=== PATIENT | female | born 1945 | race Caucasian/White ===

== ENCOUNTER → 2016-05-05 | Outpatient (CLI) | payer MEDICARE ==
[~2016-05-05] MED LIST: ACEON; AMBIEN; AMBIEN10 MG PO; ASPIRIN81 M1 PO; BENZONATATE PO; CALCIUM 500 + D1 TAB PO; CALCIUM 5001 TAB; CENTRUM PO; FERRO-TIME325 MG PO; FISH OIL 1,0001 CAP PO; FLEXERIL; LEVAQUIN750 M1 PO; LEVOXYL100 MCG PO; LEXAPRO; LEXAPRO PO; LIPITOR80 MG PO; LYRICA25 MG; LYRICA75 MG PO; MACROBID 100 M100 MG PO; MAGNESIUM; METFORMIN; METFORMIN HCL500 M1 PO; METFORMIN PO; MOBIC; NASONEX17 GM; NEXIUM; NEXIUM PO; OPANA ER15 M1 PO; PERCOCET 10/3251 TAB PO; PERCOCET10 PO; PHENERGAN; PRAVACHOL; PREMARIN; SERTRALINE HCL100 M1 PO; TOPROL XL; VITAMIN C60 MG; VITAMIN D400 UNI2; VITAMIN E15 U/0.3 M; ZINC; ZYRTEC PO
--- NOTE | ~2016-05-05 | XA30 ---
[facility] A Service of [facility] & [facility] RADIOLOGY TEXT RESULTS PATIENT: ABIOLA ROJAS LOCATION: [facility] : 49 UNIT #: [id number] AGE: [address]: Thang Rouse MD SEX: F ORDER DR: [id number] [facility] [address] [place], [place] [address] [id number] O MR#: [id number] Acc #: [id number] NAME: ABIOLA ROJAS. : 1945 SEX: F STUDY DATE/TIME: 05/05/2016 14:15 [facility] ROOM: STUDY DESCRIPTION: XA Arthrocentesis Major Joint Attending Physician: Thang Rouse M.D. Ordering Physician: Staff Doctor Not On Primary Care Physician: Cha Monsivais M.D. MEDICAL IMAGING REPORT This report is preliminary unless electronic signature is present EXAM Left hip injection with fluoroscopic guidance, 05/05/2016 HISTORY Left hip pain. PROCEDURE Informed consent was obtained and a skin site was selected and marked, sterilely prepped and draped and locally anesthetized. A 22-gauge spinal needle was advanced into the joint and a tiny amount of contrast injected to confirm intraarticular needle tip position. This was followed by 40 mg of Depo-Medrol and 2 mL of 0.5% Marcaine. Patient reported pre-procedure pain level of 08/10 and postprocedure pain level of 06/10. Total fluoro time 0.2 minutes single spot image obtained. IMPRESSION Technically successful left hip injection with fluoroscopic guidance, Depo-Medrol and Marcaine injected with a slight decrease in pre to postprocedure pain from 8-6/10. Dictated by... Tres Griffith M.D. THIS IS AN ELECTRONICALLY VERIFIED REPORT Tres Griffith M.D. at 05/10/2016 5:05 PM TEV/rnr TD: 05/07/2016 22:15 JOB #: [id number] MEDICAL IMAGING REPORT COPY
== END | disposition home or self-care (01) ==
LOC: CIVR 13:35
PROC: 3E0U3GC Introduction of Other Therapeutic Substance into Joints, Percutaneous Approach (ICD-10-PCS; principal; 2016-05-05)
DX: M16.0 Bilateral primary osteoarthritis of hip (principal); M53.3 Sacrococcygeal disorders, not elsewhere classified; M54.2 Cervicalgia; M54.16 Radiculopathy, lumbar region; M54.12 Radiculopathy, cervical region; M19.90 Unspecified osteoarthritis, unspecified site; M79.1 Myalgia
CPT/HCPCS: 77002; J1030; Q9966